=== PATIENT | male | born 1955 | race African-American/Black ===

== ENCOUNTER → 2018-05-07 | Day surgery (SDC) | payer OTHER ==
[2018-05-07] MEDS: LIDOCAINE 1%/EPI 1:100,000 20 ML VIAL. INJ (11:19)
== END | disposition home or self-care (01) ==
LOC: SURG 10:17
DX: D17.1 Benign lipomatous neoplasm of skin and subcutaneous tissue of trunk (principal); I10 Essential (primary) hypertension; N40.0 Benign prostatic hyperplasia without lower urinary tract symptoms; Z98.890 Other specified postprocedural states; Z72.89 Other problems related to lifestyle; Z87.891 Personal history of nicotine dependence
CPT/HCPCS: 21931; 88304; J3490